=== PATIENT | female | born 1955 | race Caucasian/White ===

== ENCOUNTER → 2016-11-21 | Day surgery (SDC) | payer OTHER ==
[~2016-11-21] VITALS: Ht 160 cm; Wt 76.2 kg
[~2016-11-21] MED LIST: FOLIC ACID1 M1 PO; FOSAMAX70 M1 PO; NEXIUM20 M1 PO; PRINIVIL20 M1 PO; TREXALL10 M1 AD
--- NOTE | 2016-11-21 11:47 | Operative Report ---
Operative/Inv Procedure Report Surgery Date: 11/21/16 Name of Procedure: Left lumpectomy for wire localization Pre-Operative Diagnosis: Left breast DCIS Post-Operative Diagnosis: Same Estimated Blood Loss: less than 50ml Surgeon/Home Planning Consultant Salesperson: PEE PIERSON MD Anesthesia: local monitored anesthesi Specimens: Left lumpectomy, medial margin, cranial margin, lateral margin, caudal margin, deep margin, anterior margin Operative/Procedure Note Note: Patient is status post a needle biopsy showing a stage 0, DCIS. She have preoperative wire localization films reviewed. She is brought to the operating room and placed supine on the table. Anesthesia was administered and the left breast was prepped and draped in a sterile fashion using ChloraPrep. Ancef was given and local anesthesia was given of half percent Marcaine mixed with 1% lidocaine. A curvilinear incision was made in the 3 clock position left breast. Both wires were brought into the incision. The area of concern was grasped using an Allis clamp. There is a large hematoma which was entered and copious clot was suctioned. The area of concern was widely dissected. Margin map was used to ric for orientation. Intraoperative x-ray showed one clip and both wires were seen on the x-ray. Wide margins were taken in the cranial, caudal, medial, lateral, deep, and anterior positions. The second clip is presumed to have been suctioned with the hematoma. The hematoma was densely adherent to the skin in the cranial/skin margin. All tissue between the subcutaneous tissue and the pectoralis fascia was excised in the 12 o'clock position. Hemostasis is adequate. A 2x 3 BioSorb Marker was placed and fastened to the breast tissue using Maxon sutures. Deep tissue was proximal made over the Marker using Vicryl sutures, and the skin was closed using a running Biosyn subcutaneous color stitch. There should and sterile dressings were applied and patient transferred to the recovery room in satisfactory condition having tolerated the procedure well.
--- NOTE | 2016-11-21 15:23 | MAMMOGRAPHY REPORT ---
PROCEDURE: MM GUIDANCE FOR BREAST PREOPERATIVE NEEDLE LOCALIZATION, LEFT (x2) MM SPECIMEN RADIOGRAPHY CLINICAL INFORMATION: Biopsy proven left-sided DCIS at 12 o'clock, at 2 sites (anterior as well as posterior grouping as was documented on prior studies). Preoperative needle localization of both these 2 sites with bracket technique is requested. COMPARISON: Prior studies done on 10/10/2016 and stereotactic biopsy done on 11/05/2016. TECHNIQUE/FINDINGS: The details of the procedure, as well as the risks, benefits, and alternatives to the procedure were explained to the patient in detail and all of her questions were answered, after which, written informed consent was obtained. Prior to the procedure, the previous stereotactically placed tissue markers were localized using CC and ML views. Please note that there is no residual mass or definite calcifications identified at this time in the biopsy bed. A time out was performed, the tissue markers intended for needle localization were targeted and the skin of the left breast was then prepped and draped in the usual sterile fashion. Using mammographic guidance, sterile technique and buffered 2% lidocaine without epinephrine for local anesthesia, a 7 cm Kopans needle-wire was placed posterior to the tissue marker located within the posterior part of the biopsy bed. Subsequently, a 5 cm Kopans needle was advanced just anterior to the anteriorly placed tissue marker within the biopsy bed, using a bracket technique. The patient tolerated the procedure well. The worksheet was appropriately labeled and was sent to the OR with the patient. Subsequently, following excision of the tissue markers, the specimen radiography was performed which revealed intact. The only posteriorly placed tissue marker is identified within the specimen. The anteriorly placed tissue marker is not visualized possibly removed at the time of suction used for removal of the adjacent hematoma. Dr. Shea is aware of this finding. IMPRESSION: 1. Successful mammographic-guided needle localization of the left breast biopsy-proven DCIS at 12 o'clock. 2. Final specimen radiograph confirming removal of the both the wires, and [address] Shea is aware of this finding.
== END ==
LOC: STS 01:14 → CBW.IIU 08:00 → CBW.MAMMO 08:30
DX: D05.12 Intraductal carcinoma in situ of left breast (principal); M06.9 Rheumatoid arthritis, unspecified; I10 Essential (primary) hypertension; E78.5 Hyperlipidemia, unspecified
CPT/HCPCS: 88305; 88307; C9728; J0131; J0690; J2001; J2250

== ENCOUNTER → 2016-12-05 | Day surgery (SDC) | payer OTHER ==
--- NOTE | 2016-12-05 14:40 | Operative Report ---
Operative/Inv Procedure Report Surgery Date: 12/05/16 Name of Procedure: Reexcision left lumpectomy Pre-Operative Diagnosis: Positive deep margin status post left lumpectomy Post-Operative Diagnosis: Same Estimated Blood Loss: less than 50ml, large hematoma evacuated several 100 mL Surgeon/Travel Registered Nurse Icu: PEE PIERSON MD Anesthesia: local monitored anesthesi Specimens: Deep margin, caudal margin Operative/Procedure Note Note: Patient status post a left lumpectomy for DCIS and has a positive deep margin. Caudal margin was close, additional margins were negative on final excision. Brought to the operating room for reexcision. The left breast was prepped and draped in a sterile fashion and anesthesia was administered. Patient had evidence of a firm tense hematoma. Local anesthesia 1% lidocaine exception Marcaine was given the previous incision was opened. Several 100 mL of hematoma were evacuated. The remaining lumpectomy cavity extended in the majority of the upper half of the breast. Medially the breast tissue was at approximately 9:00 and laterally to 3:00. The pectoralis fashion was visible and remaining pectoralis fascia and the lipectomy bed was removed. All tissue anterior to the pectoralis fashion was excised and lumpectomy cavity. Additional caudal margin was also obtained. BioSorb Marker was removed and because of the extent of tissue retraction secondary to hematoma was not replaced. The lumpectomy margins were marked using mammary clips. Deep tissue was approximated using interrupted Vicryl sutures and the tissue was very friable. Skin was closed using a running Biosyn subcutaneous color stitch. Steri-Strips and sterile dressings were applied and patient transferred to the recovery room in satisfactory condition having tolerated the procedure well.
== END ==
LOC: STS 02:52
DX: D05.12 Intraductal carcinoma in situ of left breast (principal); M06.9 Rheumatoid arthritis, unspecified; Z79.82 Long term (current) use of aspirin
CPT/HCPCS: 88305; J0131; J0690; J1885; J2250; J2405